=== PATIENT | female | born 1955 ===

== ENCOUNTER 2023-01-31 10:42 | Outpatient (CLI) | payer OTHER ==
[~2023-01-31 10:42] MED LIST: INTESTINEX1 CAP PO
== END 2023-01-31 10:46 | disposition home or self-care (01) ==
LOC: NUCLEAR 10:42
PROVIDERS: ATTEND Internal Medicine Cardiovascular Disease
DX: I82.402 Acute embolism and thrombosis of unspecified deep veins of left lower extremity (principal)

== ENCOUNTER 2023-02-18 10:38 | Outpatient (CLI) | payer OTHER | END 2023-02-18 10:39 | disposition home or self-care (01) | LOC: NUCLEAR 10:38 | PROVIDERS: ATTEND Internal Medicine Cardiovascular Disease | DX: I82.402 Acute embolism and thrombosis of unspecified deep veins of left lower extremity (principal) ==